=== PATIENT | male | born 1995 | race Caucasian/White ===

== ENCOUNTER 2016-08-11 17:54 | Emergency (ER) | payer OTHER, SELFPAY ==
[~2016-08-11] VITALS: Ht 170.2 cm; Wt 88.5 kg
[2016-08-11 18:01] VITALS: BP 151/97
[2016-08-11] MEDS ORDERED: SYMB16INH INH (18:08)
[2016-08-11] MEDS ORDERED: ALBUTEROL 90 MCG/ACT 8GM HFA INHALER INH ONE (19:00)
[2016-08-11] MEDS ORDERED: methylPREDNISolone INJ 125 MG/2 ML VIAL (J2930) IV ONE (19:00)
--- NOTE | 2016-08-11 20:04 | REP ---
CHEST X-RAY PA AND LATERAL: 08/11/2016. Clinical history: Asthma, cough. Comparison: 02/23/2016, 08/14/2015. Findings: Lungs somewhat hypoinflated as on prior studies. There is no pleural effusion or acute infiltrate. There is some crowding of markings in the bases. No dense consolidation with air bronchograms. Heart size not enlarged for this degree of inflation. The airway is midline and unremarkable. No widening of the mediastinum. No edema, effusion or other acute finding. Bones intact. No free air under the diaphragm. Impression: 1. Somewhat hypoinflated chest with mild crowding of markings in the bases. No cardiomegaly, edema, effusion or acute infiltrate. Signed by Wei Pantoja MD 08/11/2016 08:08 P
[2016-08-11] MEDS ORDERED: PRED20TA PO (20:17)
[2016-08-11] MEDS ORDERED: ALBU17IN INH (20:17)
[2016-08-11] MEDS ORDERED: ZITHTAB PO (20:17)
== END 2016-08-11 20:37 | disposition home or self-care (01) ==
LOC: EDBD 17:54 → M ED 19:14
DX: J20.9 Acute bronchitis, unspecified (principal); J45.909 Unspecified asthma, uncomplicated; Z79.51 Long term (current) use of inhaled steroids
CPT/HCPCS: 36415; 71020; 94640; 99282; J2930

== ENCOUNTER 2016-10-25 16:23 | Emergency (ER) | payer OTHER, SELFPAY ==
[~2016-10-25] VITALS: Ht 172.7 cm; Wt 89.4 kg
[~2016-10-25 16:23] MED LIST: ALBU17IN INH; PRED20TA PO; SYMB16INH INH; ZITHTAB PO
[2016-10-25] MEDS ORDERED: IPRATROPIUM 0.5MG/ALBUTEROL 2.5MG INH SOL UD 3ML (DUONEB)(J7620) NEB ONE (17:15)
[2016-10-25] MEDS ORDERED: predniSONE 20 MG TAB PO ONE (17:15)
[2016-10-25] MEDS ORDERED: PRED20TA PO (17:35)
[2016-10-25 17:58] VITALS: BP 183/97
== END 2016-10-25 18:22 | disposition home or self-care (01) ==
LOC: M ED 17:07
DX: J45.901 Unspecified asthma with (acute) exacerbation (principal)

== ENCOUNTER 2017-03-28 21:16 | Emergency (ER) | payer OTHER ==
[~2017-03-28] VITALS: Ht 170.2 cm; Wt 91.4 kg
[2017-03-28] MEDS ORDERED: PEPT262T2 PO (22:16)
[2017-03-28] MEDS ORDERED: TUMS500C PO (22:16)
[2017-03-29] MEDS ORDERED: COLA100C5 PO (02:30)
[2017-03-29 03:04] VITALS: BP 168/72
--- NOTE | 2017-03-29 08:34 | REP ---
Acute abdominal series series including PA chest and supine upright abdomen: PA chest: Comparison is 08/11/2016. Lung joshua are clear. Cardiac size is normal. The harry, mediastinum, and bony thorax unremarkable. There is no free subdiaphragmatic air. No interval change. Impression: Negative PA chest. Abdomen, supine and upright views: The bowel gas pattern is normal. There are no calcifications. Skeletal structures and soft tissues are otherwise unremarkable. Impression: Normal bowel gas pattern. Signed by Motnana Bingham MD 03/29/2017 08:24 A
== END 2017-03-29 03:15 | disposition home or self-care (01) ==
LOC: M ED 21:16
DX: K59.00 Constipation, unspecified (principal)

== ENCOUNTER 2018-03-30 23:33 | Emergency (ER) | payer OTHER ==
[2018-03-31] MEDS: ALBUTEROL SULFATE 2.5 MG/0.5 ML INH NEB SOLN NEB (02:15)
[2018-03-31] MEDS: IBUPROFEN 600 MG TAB PO (02:31)
== END 2018-03-31 02:42 | disposition home or self-care (01) ==
LOC: M ED 23:33
DX: J06.9 Acute upper respiratory infection, unspecified (principal)
CPT/HCPCS: 94640

== ENCOUNTER 2018-04-04 09:03 | Emergency (ER) | payer OTHER ==
[2018-04-04 10:27] LABS: BASO % 0.4 % (0.0-1.0); EOS # 0.2 10^3/uL (0.0-0.50); EOS % 2.1 % (0.0-3.0); HEMOGLOBIN 16.4 g/dl (13.5-17.5); IMMATURE GRANULOCYTE % 0.3 % (0-3.0); LYMPH % 19.3 % (24.0-44.0); MEAN CORPUSCULAR HEMOGLOBIN 32.8 pg (27.0-33.0); MEAN CORPUSCULAR HGB CONC 34.9 g/dl (32.0-36.5); MONO % 10.2 % (0.0-5.0); NEUTROPHILS # 6.9 10^3/uL (1.8-7.7); NEUTROPHILS % 67.7 % (36.0-66.0); PLATELET COUNT, AUTOMATED 308 10^3/uL (150-450); WHITE BLOOD COUNT 10.2 10^3/uL (4.0-10.0)
[2018-04-04 10:41] LABS: INR 0.96; PROTHROMBIN TIME 12.9 SECONDS (12.1-14.4)
[2018-04-04 10:45] LABS: D-DIMER QUANT < 270.0 ng/ml (<500)
[2018-04-04 11:14] LABS: ANION GAP 8 MEQ/L (8-16); BLOOD UREA NITROGEN 16 MG/DL (7-18); CALCIUM LEVEL 7.6 MG/DL (8.5-10.1); CARBON DIOXIDE LEVEL 25 MEQ/L (21-32); CHLORIDE LEVEL 112 MEQ/L (98-107); CK-MB VALUE MASS < 1.0 NG/ML (<3.6); CPK CREATINE PHOSPHOKINASE 172 U/L (39-308); CREATININE FOR GFR 0.61 MG/DL (0.70-1.30); GLOMERULAR FILTRATION RATE > 60.0 (>60); GLUCOSE, FASTING 76 MG/DL (70-100); MB/CK RELATIVE INDEX 0.58 (< OR =4); NT-PRO BNP < 5 PG/ML (<125); POTASSIUM SERUM 3.3 MEQ/L (3.5-5.1); SODIUM LEVEL 145 MEQ/L (136-145); TROPONIN I < 0.02 NG/ML (< 0.10)
[2018-04-04] MEDS: POTASSIUM CHLORIDE 10 MEQ SR TABLET PO (11:28)
[2018-04-04] MEDS: guaiFENesin SYRUP 200 MG/10 ML UDC PO (12:07)
== END 2018-04-04 12:33 | disposition home or self-care (01) ==
LOC: M ED 09:03
DX: J06.9 Acute upper respiratory infection, unspecified (principal); E87.6 Hypokalemia; J45.909 Unspecified asthma, uncomplicated; Z79.51 Long term (current) use of inhaled steroids
CPT/HCPCS: 71046

== ENCOUNTER → 2018-11-28 | Outpatient (CLI) | payer OTHER ==
[~2018-11-28] MED LIST changes: +AUGM500T34 PO; +COLA100C5 PO; +PEPT262T2 PO; +TUMS500C PO; +VENTAER INH
== END ==
LOC: M CARPUL 13:44
PROVIDERS: ATTEND Internal Medicine Pulmonary Disease
DX: J45.30 Mild persistent asthma, uncomplicated (principal)

== ENCOUNTER 2018-12-04 19:31 | Emergency (ER) | payer OTHER ==
[~2018-12-04] VITALS: Ht 170.2 cm; Wt 87.3 kg
[~2018-12-04 19:31] MED LIST changes: -AUGM500T34 PO
[2018-12-05] MEDS ORDERED: IPRATROPIUM 0.5MG/ALBUTEROL 2.5MG INH SOL UD 3ML (DUONEB)(J7620) NEB ONE (01:15)
[2018-12-05 02:11] VITALS: BP 133/77
--- NOTE | 2018-12-05 09:49 | REP ---
Clinical: Shortness of breath Comparison: 04/04/2018 . Technique: PA and lateral. Findings: The mediastinum and cardiac silhouette are normal. The lung joshua are clear and without acute consolidation, effusion, or pneumothorax. The skeletal structures are intact and normal. Impression: 1. No acute cardiopulmonary process. Electronically Signed by Rambo Lane MD 12/05/2018 09:41 A
== END 2018-12-05 02:12 | disposition home or self-care (01) ==
LOC: M ED 19:31
DX: J45.902 Unspecified asthma with status asthmaticus (principal)

== ENCOUNTER 2019-02-25 02:22 | Emergency (ER) | payer OTHER ==
[~2019-02-25] VITALS: Ht 170.2 cm; Wt 86.4 kg
[2019-02-25 03:09] VITALS: BP 167/88
[2019-02-25] MEDS ORDERED: AUGM500T34 PO (03:55)
[2019-02-25] MEDS ORDERED: NS 500 ML IV ONE (04:00)
[2019-02-25] MEDS ORDERED: AMPICILLIN SOD/SULBACTAM SOD 1.5 GM in D5W MINI-BAG PLUS 50 ML IV ONE (04:00)
== END 2019-02-25 04:56 | disposition home or self-care (01) ==
LOC: M ED 02:22
DX: L73.2 Hidradenitis suppurativa (principal); J45.909 Unspecified asthma, uncomplicated; Z79.51 Long term (current) use of inhaled steroids

== ENCOUNTER 2019-07-21 23:24 | Emergency (ER) | payer MEDICAID, OTHER, SELFPAY ==
[~2019-07-21] VITALS: Ht 170.2 cm; Wt 92.8 kg
[~2019-07-21 23:24] MED LIST changes: +AUGM500T34 PO
[2019-07-21] MEDS ORDERED: ALBU83IN NEB (23:41)
[2019-07-21] MEDS ORDERED: IPRATROPIUM 0.5MG/ALBUTEROL 2.5MG INH SOL UD 3ML (DUONEB)(J7620) NEB ONE (23:45)
[2019-07-22] MEDS ORDERED: ALBUTEROL SULFATE 2.5 MG/0.5 ML INH NEB SOLN NEB ONE (00:15)
[2019-07-22] MEDS ORDERED: AMOXICILLIN 500 MG CAP PO ONE (00:15)
[2019-07-22] MEDS ORDERED: predniSONE 20 MG TAB PO ONE (00:15)
[2019-07-22] MEDS ORDERED: VENTAER INH (00:48)
[2019-07-22] MEDS ORDERED: ALBU83IN NEB (00:48)
[2019-07-22] MEDS ORDERED: PRED20TA PO (00:48)
[2019-07-22] MEDS ORDERED: AMOX500C PO (00:48)
[2019-07-22 00:51] VITALS: BP 150/88
== END 2019-07-22 00:56 | disposition home or self-care (01) ==
LOC: M ED 23:24
DX: J45.901 Unspecified asthma with (acute) exacerbation (principal)

== ENCOUNTER → 2019-08-10 | Outpatient (REF) | payer OTHER, MEDICAID ==
[~2019-08-10] MED LIST changes: +ALBU83IN NEB; +AMOX500C PO
== END ==
LOC: M LAB REF 17:20
PROVIDERS: ATTEND Dermatology
DX: L73.2 Hidradenitis suppurativa (principal)

== ENCOUNTER 2019-08-23 22:27 | Emergency (ER) | payer MEDICAID, OTHER ==
[~2019-08-23] VITALS: Ht 170.2 cm; Wt 86.4 kg
[2019-08-23 23:55] VITALS: BP 155/72
--- NOTE | 2019-08-24 07:57 | REP ---
Right knee series: Five views. History: Pain after a bicycle exercise. Findings: Five views of the right knee demonstrate normal bones, joints and soft tissues. No fracture, subluxation, or joint effusion. Impression: Negative right knee radiographs. Electronically Signed by Dex Rossa MD 08/24/2019 07:48 A
== END 2019-08-23 23:56 | disposition home or self-care (01) ==
LOC: M ED 22:27
DX: M25.561 Pain in right knee (principal); Y92.830 Public park as the place of occurrence of the external cause; Y93.55 Activity, bike riding; Z88.8 Allergy status to other drugs, medicaments and biological substances

== ENCOUNTER 2020-01-24 23:00 | Emergency (ER) | payer OTHER ==
[~2020-01-24] VITALS: Ht 170.2 cm; Wt 86.4 kg
[2020-01-25 00:51] VITALS: BP 136/82
== END 2020-01-25 01:05 | disposition home or self-care (01) ==
LOC: M ED 23:00
DX: M79.671 Pain in right foot (principal); M79.672 Pain in left foot; J45.909 Unspecified asthma, uncomplicated; Z79.899 Other long term (current) drug therapy; Z88.8 Allergy status to other drugs, medicaments and biological substances

== ENCOUNTER → 2020-02-21 | Outpatient (REF) | payer OTHER | LOC: M LAB REF 18:46 | PROVIDERS: ATTEND Dermatology | DX: Z11.2 Encounter for screening for other bacterial diseases (principal); L73.2 Hidradenitis suppurativa ==

== ENCOUNTER 2021-04-23 10:41 | Emergency (ER) | payer MEDICAID, OTHER ==
[~2021-04-23] VITALS: Ht 170.2 cm; Wt 100.0 kg
[2021-04-23] MEDS ORDERED: predniSONE 20 MG TAB PO ONE (11:10)
[2021-04-23] MEDS ORDERED: COMBIVENT RESPIMAT 100-20MCG INHALER 4GM INH STA (11:24)
[2021-04-23] MEDS ORDERED: AMOX500T2 PO (11:48)
[2021-04-23] MEDS ORDERED: PRED20TA PO (12:50)
[2021-04-23 13:30] VITALS: BP 143/79
== END 2021-04-23 13:30 | disposition home or self-care (01) ==
LOC: M ED 10:41 → EDBD 10:41 → M ED 13:30
DX: U07.1 COVID-19 (principal); J45.909 Unspecified asthma, uncomplicated; Z79.899 Other long term (current) drug therapy; Z88.8 Allergy status to other drugs, medicaments and biological substances
CPT/HCPCS: 36415; 71045; 99284; J7512

== ENCOUNTER → 2021-07-21 | Outpatient (CLI) | payer OTHER ==
[~2021-07-21] MED LIST changes: +AMOX500T2 PO
== END ==
LOC: M CARPUL 07:10
PROVIDERS: ATTEND Physician Assistant
DX: J45.909 Unspecified asthma, uncomplicated (principal)

== ENCOUNTER → 2023-03-01 | Outpatient (REF) | payer MEDICAID, OTHER ==
[~2023-03-01] MED LIST changes: +ALBU2.5V10 NEB; -ALBU83IN NEB
== END ==
LOC: M LAB REF 17:06
PROVIDERS: ATTEND Physician Assistant
DX: L73.2 Hidradenitis suppurativa (principal)

== ENCOUNTER 2023-04-28 16:37 | Emergency (ER) | payer OTHER ==
[~2023-04-28] VITALS: Ht 170.2 cm; Wt 109.5 kg
[2023-04-28 16:37] VITALS: BP 159/81; TEMP 98; O2SAT 97
[2023-04-28] MEDS ORDERED: ACETAMINOPHEN 500 MG TAB PO ONE (20:40)
[2023-04-28] MEDS ORDERED: BACTRIM 160MG/800MG DS TAB PO ONE (20:40)
[2023-04-28] MEDS ORDERED: BACT800T5 PO (20:42)
[2023-04-28] MEDS ORDERED: AUGMENTIN 875 MG TAB PO ONE (20:45)
[2023-04-28] MEDS ORDERED: AMOX875T2 PO (20:48)
== END 2023-04-28 21:00 | disposition home or self-care (01) ==
LOC: M ED 16:37
DX: L73.2 Hidradenitis suppurativa (principal); J45.909 Unspecified asthma, uncomplicated; Z87.2 Personal history of diseases of the skin and subcutaneous tissue; Z88.8 Allergy status to other drugs, medicaments and biological substances

== ENCOUNTER 2023-07-24 16:54 | Emergency (ER) | payer MEDICAID, OTHER ==
[~2023-07-24] VITALS: Ht 170.2 cm; Wt 110.0 kg
[~2023-07-24 16:54] MED LIST changes: +AMOX875T2 PO; +BACT800T5 PO
[2023-07-24 16:57] VITALS: BP 141/91; TEMP 98.6; O2SAT 97
[2023-07-24] MEDS ORDERED: APAP325T4 PO (17:05)
== END 2023-07-24 20:42 | disposition home or self-care (01) ==
LOC: M ED 16:54
DX: M25.562 Pain in left knee (principal); X58.XXXA Exposure to other specified factors, initial encounter; Y92.410 Unspecified street and highway as the place of occurrence of the external cause; Y93.55 Activity, bike riding; Y99.9 Unspecified external cause status; Z88.8 Allergy status to other drugs, medicaments and biological substances

== ENCOUNTER → 2023-08-24 | Outpatient (REF) ==
[~2023-08-24] MED LIST changes: +APAP325T4 PO
== END ==
LOC: M PLAIMG 11:29
PROVIDERS: ATTEND Internal Medicine
DX: M54.6 Pain in thoracic spine (principal)

== ENCOUNTER → 2023-10-03 | Outpatient (REF) | payer OTHER, MEDICAID | LOC: M SFHCDERM 11:05 | PROVIDERS: ATTEND Physician Assistant | DX: L73.2 Hidradenitis suppurativa (principal) ==